=== PATIENT | female | born 1940 | race Caucasian/White ===

== ENCOUNTER 2024-05-25 15:23 | Emergency (ER) | payer OTHER, SELFPAY ==
[2024-05-25 15:25] VITALS: BP 150/105
[2024-05-25 16:05] LABS: % Basophils 1.2 % (0-2); % Eosinophils 3.2 % (0-6); % Immature Granulocytes 0.2 % (0-0.5); % Lymphocytes 31.6 % (20.5-51.1); % Monocytes 5.2 % (1.7-9.3); % Neutrophils 58.6 % (42.2-75.2); Absolute Basophils 0.1 10^3/uL (0-0.2); Absolute Eosinophils 0.3 10^3/uL (0-0.7); Absolute Lymphocytes 2.6 10^3/uL (1.2-3.4); Absolute Monocytes 0.4 10^3/uL (0.1-0.6); Absolute Neutrophils 4.8 10^3/uL (1.4-6.5); Hematocrit 39.5 % (37.0-47.0); Hemoglobin 13.5 g/dL (12.0-16.0); Mean Corp Hgb Conc. 34.2 g/dL (33.0-37.0); Mean Corpuscular Hgb 30.8 pg (27.0-31.0); Mean Corpuscular Volume 90.2 fL (81.0-99.0); Mean Platelet Volume 9.7 fL (7.4-10.4); Nucleated Red Blood Cells % 0 %; Platelet Count 257 10^3/uL (130-400); Red Blood Cell Count 4.38 10^6/uL (4.20-5.40); Red Cell Dist. Width 11.9 % (11.5-14.5); White Blood Cell Count 8.2 10^3/uL (4.8-10.8)
[2024-05-25 16:16] LABS: ALT (SGPT) 15 U/L (0-35); AST (SGOT) 26 U/L (14-36); Albumin 4.4 g/dl (3.5-5.0); Alkaline Phosphatase 88 U/L (38-126); Blood Urea Nitrogen 18 mg/dl (7-17); Calcium 9.3 mg/dl (8.4-10.2); Carbon Dioxide 28 mmol/L (22-30); Chloride 100 mmol/L (98-107); Glucose 93 mg/dl (70-99); INR 1.54; PT 18.6 Sec (11.4-14.6); Potassium 4.5 mmol/L (3.5-5.1); Sodium 139 mmol/L (135-145); Total Bilirubin 0.9 mg/dl (0.2-1.3); Total Protein 6.6 g/dl (6.3-8.2); eGFR > 60.00
[2024-05-25 16:25] VITALS: BP 133/100; BMI 22.3
[2024-05-25 16:27] VITALS: BP 133/100
[2024-05-25 16:27] LABS: Troponin I < 0.012 ng/ml
--- NOTE | 2024-05-25 16:46 | ED.GENMED ---
History of Present Illness
General
Chief Complaint: Heart Rate Problem
Source: patient and physician
Exam Limitations: none
Time Seen by Provider: 05/25/24 16:29
Nursing documentation reviewed up to this point in time: agreed with
History of Present Illness
History of Present Illness:
83-year-old female presents after EKG showed atrial fibrillation at office. She denies any symptoms at this time.
Past History
Past History
ED Past Medical History: Arrthythmia (Atrial flutter), HTN and Hypercholesterolemia
ED Past Surgical History: Other (Lipoma removed)
Social History
Tobacco: Former smoker
Alcohol: None
Personal:
Living: alone
Review of Systems
Review of Systems
Allergies reviewed?: Yes
All Other Systems: Not applicable
Constitutional: Reports no symptoms
EENT: Reports no symptoms
Respiratory: Reports no symptoms
Cardiac: Reports palpitations
ABD/GI: Reports no symptoms
: Reports no symptoms
Musculoskeletal: Reports no symptoms
Skin: Reports no symptoms
Neurological: Reports no symptoms
Endocrine: Reports no symptoms
Hematologic/Lymphatic: Reports no symptoms
Psychiatric: Reports no symptoms
Phy Exam
Physical Exam
Physical Exam:
Physical Exam
General: no apparent distress, not acutely ill
Neck: supple. no meningeal signs. normal posterior pharynx
Heart: s1/s2 regular rate and rhythm, no murmur. equal radial
pulses.
HEENT: Pupils equal round reactive to light, EOMI
Lungs: no acute respiratory distress. clear bilaterally
Abdomen: normal bowel sounds. not tender. no CVAT
Neuro: alert and oriented. no focal neurological deficits cranial nerves II through XII intact
Skin: no rash
Psychiatric: well kept. interactive and cooperative
Extremities: no edema. no calf tenderness. negative homans. good distal pulses
Course
Orders/Labs/Results
Orders:
Orders
05/25/24 15:24
EKG [Electrocardiogram (*1)] Urgent
Reason for Study: Tachycardia
EKG- Treatment ONCE
05/25/24 15:51
Complete Blood Count/With Diff Urgent
Comprehensive Metabolic Panel Urgent
Prothrombin Time Urgent
Troponin I Urgent
05/25/24 16:55
Diltiazem HCl [Cardizem] 5 mg IV NOW STA
05/25/24 16:56
IV Insert/Care/Rem.- Treatment PRN
Abnormal Lab Results
05/25/24
15:51
PT 18.6 H Sec
(11.4-14.6)
BUN 18 H mg/dl
(7-17)
05/25/24 15:51
05/25/24 15:51
Vital Signs
Initial and Last Documented VS:
Initial Vital Signs
Temp Pulse Resp BP Pulse Ox
98.9 F 127 20 150/105 98
05/25/24 15:25 05/25/24 15:25 05/25/24 15:25 05/25/24 15:25 05/25/24 15:25
Last Documented Vital Signs
Temp Pulse Resp BP Pulse Ox
98.9 F 95 19 135/96 98
05/25/24 15:25 05/25/24 18:00 05/25/24 18:00 05/25/24 18:00 05/25/24 18:00
MDM/Problems Addressed
Differential Diagnosis Includes:
Atrial flutter
MDM/Problems Addressed:
83-year-old female with rapid atrial flutter, now rate controlled without intervention. Patient has not been taking her Eliquis as directed. Will increase her Cardizem to 360 daily. DCCV not indicated at this time.
Chronic conditions affecting care: Arrhythmia
Acute Exacerbation and/or Progression of Chronic Illness: Arrhythmia
*Pulse Oximetry
Patient hypoxic: no
*EKG
Interpreted by ED Provider?: Yes
EKG Intrepretation Date: 05/25/24
EKG Intrepretation Time: 15:26
Interpretation: abnormal
Comparison EKG: changes noted
Heart Rate: 126
Rate: tachycardiac
Rhythm: atrial flutter
[place]: normal axis
Interval: normal interval
QRS Pattern: normal QRS
Ischemia: no ischemia
*Energy Crop Farmer Interpretation
Rate: normal
Interpretation: abnormal
Heart Rate: 92
Rhythm: atrial flutter
*Critical Care Note
Total Time (30-74mins, 75-104mins- exclusive of procedures): Not Applicable
Data Reviewed
Prescriptions/Medications Considered But Not Given:
DCCV considered, not indicated due to non compliance and rate control
Patient Management
Social determinants of health affecting care: Living situation
Discussion with other providers: Cargo Operations Agent (cardiology Dr. Mathews)
Escalation/DeEscalation of care consider admission/obs:
admit not indicated
ED Attending Note
-
Portions of this chart may have been created with voice recognition software.� Occasional wrong word or��sound alike� substitutions may have occurred due to the inherent limitations of voice recognition software.
Discharge Plan
Departure
Patient Disposition: Home (Routine Discharge)
Date of Disposition: 05/25/24
Time of Disposition: 18:14
Patient with high blood pressure during this ER visit?: Yes
Condition: Good
Discharge Problem:
Atrial flutter
Prescriptions:
New
diltiazem HCl [Cardizem CD] 360 mg capsule,extended release 24hr
360 mg PO DAILY Qty: 30 0RF
Rx Instructions:
stop cardizem 240 and take this medication
No Action
amoxicillin-pot clavulanate 1 TABLET tablet
1 tab PO Q12 Qty: 14 0RF
azithromycin 250 MG tablet
250 mg PO Daily Qty: 4 0RF
Promethazine/Phenyleph/Codeine [Promethazine Vc-Codeine Soln] 473 ML Syrup
5 ml PO Q8 PRN (Reason: Cough) Qty: 100 0RF
Referrals:
Kike Chen MD [Active] - Call in 1-3 days for appt
Juan A Singh, [Family Provider] -
Activity Restrictions/Additional Instructions:
Stop cardizem 240 and take cardizem 360. Take eliquis twice a day as directed. Not taking as directed increases your risk of stroke.
Interventions
Interventions:
*Risk Screen - Suicide Last Done: 05/25/24 15:25
*General Assessment Last Done: 05/25/24 16:25
*Neglect/Abuse Screening Last Done: 05/25/24 15:25
ED- Fall Risk Assessment Last Done: 05/25/24 16:25
*ED COVID-19 Vaccine History Last Done: 05/25/24 16:25
ED- Cardiac Assessment Last Done: 05/25/24 16:25
ED- Pulmonary Assessment Last Done: 05/25/24 16:25
Discharge Date and Time
Print Language: TAIWANESE
[2024-05-25 17:00] VITALS: BP 134/95
[2024-05-25 18:00] VITALS: BP 135/96
== END 2024-05-25 18:36 | disposition home or self-care (01) ==
LOC: EMR 15:23
PROVIDERS: Emergency Medicine; EMERGENCY PHYSICIAN Emergency Medicine; FAMILY PHYSICIAN Family Medicine
DX: I48.92 Unspecified atrial flutter (principal); I48.91 Unspecified atrial fibrillation; Z91.148 Patient's other noncompliance with medication regimen for other reason; I10 Essential (primary) hypertension; E78.00 Pure hypercholesterolemia, unspecified; Z87.891 Personal history of nicotine dependence
CPT/HCPCS: 99284; 80053; 84484; 85025; 85610; 93005

== ENCOUNTER 2025-01-08 13:16 | Emergency (ER) | payer OTHER, SELFPAY ==
[2025-01-08 13:19] VITALS: BP 122/66
[2025-01-08 13:45] LABS: % Basophils 0.7 % (0-2); % Eosinophils 1.8 % (0-6); % Immature Granulocytes 0.4 % (0-0.5); % Lymphocytes 11.9 % (20.5-51.1); % Monocytes 5.4 % (1.7-9.3); % Neutrophils 79.8 % (42.2-75.2); Absolute Basophils 0.1 10^3/uL (0-0.2); Absolute Eosinophils 0.2 10^3/uL (0-0.7); Absolute Monocytes 0.5 10^3/uL (0.1-0.6); Absolute Neutrophils 6.8 10^3/uL (1.4-6.5); Hematocrit 39.9 % (37.0-47.0); Hemoglobin 13.8 g/dL (12.0-16.0); Mean Corp Hgb Conc. 34.6 g/dL (33.0-37.0); Mean Corpuscular Hgb 31.4 pg (27.0-31.0); Mean Corpuscular Volume 90.9 fL (81.0-99.0); Mean Platelet Volume 9.5 fL (7.4-10.4); Nucleated Red Blood Cells % 0 %; Platelet Count 268 10^3/uL (130-400); Red Blood Cell Count 4.39 10^6/uL (4.20-5.40); Red Cell Dist. Width 11.9 % (11.5-14.5); White Blood Cell Count 8.6 10^3/uL (4.8-10.8)
[2025-01-08 14:03] LABS: ALT (SGPT) 16 U/L (0-35); AST (SGOT) 25 U/L (14-36); Albumin 4.3 g/dl (3.5-5.0); Alkaline Phosphatase 103 U/L (38-126); Blood Urea Nitrogen 9 mg/dl (7-17); Calcium 9.4 mg/dl (8.4-10.2); Carbon Dioxide 29 mmol/L (22-30); Chloride 98 mmol/L (98-107); Glucose 150 mg/dl (70-99); Potassium 4.5 mmol/L (3.5-5.1); Sodium 135 mmol/L (135-145); Total Bilirubin 0.9 mg/dl (0.2-1.3); Total Protein 6.8 g/dl (6.3-8.2); eGFR > 60.00
[2025-01-08 14:09] LABS: Troponin I < 0.012 ng/ml
[2025-01-08] MEDS: DUONEB 3 ML INH (15:53)
[2025-01-08 16:51] VITALS: BP 140/69
--- NOTE | 2025-01-08 16:58 | ED.GENMED ---
History of Present Illness
General
Chief Complaint: Cough
Time Seen by Provider: 01/08/25 15:19
History of Present Illness
History of Present Illness:
84-year-old female presents the emergency department for evaluation of cough and congestion for the past 5 days. Denies any fevers or chills. She has chest discomfort related to coughing but denies any shortness of breath. Has been using Tylenol
for the chest discomfort without relief
Past History
Past History
ED Past Medical History: Arrthythmia (Atrial flutter), HTN and Hypercholesterolemia
ED Past Surgical History: Other (Lipoma removed)
Social History
Tobacco: Former smoker
Alcohol: None
Personal:
Living: alone
Review of Systems
Review of Systems
Allergies reviewed?: Yes
All Other Systems: ROS reviewed and negative except as documented in HPI and ROS
Phy Exam
Physical Exam
Physical Exam:
GEN: Well appearing, NAD, WDWN
HEENT: Oral mucosa moist, no scleral icterus, TMs clear bilaterally with no erythema, oral mucosa pink and moist with no erythema or exudates
Cardiac: Regular rate and rhythm, no murmurs
Lung: No respiratory distress, no tachypnea, lungs clear to auscultation bilaterally
MSK: No gross deformity or injuries
Skin: Good color, no pallor or jaundice, no rashes
Neuro: AO x3, moves all extremities freely
Psych: Calm, cooperative
Course
Orders/Labs/Results
Orders:
Orders
01/08/25 13:17
CXR2 [CR Chest - 2 Views ] Urgent
Comment:
Reason For Exam: cough
01/08/25 13:23
EKG [Electrocardiogram (*1)] Urgent
Reason for Study: Shortness of Breath
EKG- Treatment ONCE
01/08/25 13:39
Complete Blood Count/With Diff Urgent
Comprehensive Metabolic Panel Urgent
Troponin I Urgent
01/08/25 15:39
Ipratropium/Albuterol Sulfate [Duoneb] 3 ml INH R NOW ONE
Abnormal Lab Results
01/08/25
13:39
MCH 31.4 H pg
(27.0-31.0)
Absolute Neuts (auto) 6.8 H 10^3/uL
(1.4-6.5)
Absolute Lymphs (auto) 1.0 L 10^3/uL
(1.2-3.4)
Neutrophils % 79.8 H %
(42.2-75.2)
Lymphocytes % 11.9 L %
(20.5-51.1)
Glucose 150 H mg/dl
(70-99)
01/08/25 13:39
01/08/25 13:39
Vital Signs
Initial and Last Documented VS:
Initial Vital Signs
Temp Pulse Resp BP Pulse Ox
98.9 F 84 18 122/66 97
01/08/25 13:19 01/08/25 13:19 01/08/25 13:19 01/08/25 13:19 01/08/25 13:19
Last Documented Vital Signs
Temp Pulse Resp BP Pulse Ox
98.9 F 80 20 140/69 100
01/08/25 13:19 01/08/25 16:51 01/08/25 16:51 01/08/25 16:51 01/08/25 16:51
MDM/Problems Addressed
MDM/Problems Addressed:
Workup was reassuring, chest x-ray negative. Patient improved with neb treatment suggesting some component of bronchitis or reactive airways disease. Will give a course of steroids and bronchodilators
*Critical Care Note
Total Time (30-74mins, 75-104mins- exclusive of procedures): Not Applicable
ED Attending Note
-
Portions of this chart may have been created with voice recognition software.� Occasional wrong word or��sound alike� substitutions may have occurred due to the inherent limitations of voice recognition software.
Discharge Plan
Departure
Patient Disposition: Home (Routine Discharge)
Date of Disposition: 01/08/25
Time of Disposition: 16:58
Patient with high blood pressure during this ER visit?: No
Discharge Problem:
Acute bronchitis
Instructions: Acute Bronchitis, Adult (DC)
Prescriptions:
New
methylprednisolone [Medrol (Ap)] 4 mg tablets,dose pack
See Rx Instructions .ROUTE .COMPLEX Qty: 21 0RF
Rx Instructions:
for 6 days
albuterol sulfate 90 mcg/actuation HFA aerosol inhaler
1 inh inhalation Q6H PRN (Reason: shortness of breath or wheezing) Qty: 6.7 0RF
No Action
amoxicillin-pot clavulanate 1 TABLET tablet
1 tab PO Q12 Qty: 14 0RF
azithromycin 250 MG tablet
250 mg PO Daily Qty: 4 0RF
Promethazine/Phenyleph/Codeine [Promethazine Vc-Codeine Soln] 473 ML Syrup
5 ml PO Q8 PRN (Reason: Cough) Qty: 100 0RF
diltiazem HCl [Cardizem CD] 360 mg capsule,extended release 24hr
360 mg PO DAILY Qty: 30 0RF
Rx Instructions:
stop cardizem 240 and take this medication
Referrals:
Juan A Sinhg, DO [Family Provider] -
Interventions
Interventions:
*Risk Screen - Suicide Last Done: 01/08/25 13:19
*Nursing Disposition Last Done: 01/08/25 17:15
ED- Pulmonary Assessment Last Done: 01/08/25 16:15
Discharge Date and Time
Discharge Date/Time: 01/08/25 17:15
Print Language: MALAY
== END 2025-01-08 17:15 | disposition home or self-care (01) ==
LOC: EMR 13:16
PROVIDERS: Emergency Medicine; EMERGENCY PHYSICIAN Emergency Medicine; FAMILY PHYSICIAN Family Medicine
DX: J20.9 Acute bronchitis, unspecified (principal); R07.89 Other chest pain; I10 Essential (primary) hypertension; E78.00 Pure hypercholesterolemia, unspecified; I48.92 Unspecified atrial flutter; Z87.891 Personal history of nicotine dependence
CPT/HCPCS: 99284; 94640; 71046; 80053; 84484; 85025; 93005

== ENCOUNTER 2025-01-24 07:25 | Emergency (ER) | payer OTHER, SELFPAY ==
[2025-01-24 07:58] VITALS: BP 146/71
[2025-01-24 09:32] VITALS: BP 154/75
[2025-01-24 09:36] VITALS: BMI 22.5
[2025-01-24 10:00] VITALS: BP 132/64
--- NOTE | 2025-01-24 11:14 | EDRN ---
Call to lab to find results-- they are unable to find labs ( apparently they were sent using [facility] as the barcode labels were lost )
I resent the labs
[2025-01-24 11:20] LABS: % Basophils 0.7 % (0-2); % Eosinophils 2.1 % (0-6); % Immature Granulocytes 0.3 % (0-0.5); % Lymphocytes 24.1 % (20.5-51.1); % Monocytes 4.4 % (1.7-9.3); % Neutrophils 68.4 % (42.2-75.2); Absolute Basophils 0.1 10^3/uL (0-0.2); Absolute Eosinophils 0.2 10^3/uL (0-0.7); Absolute Lymphocytes 1.8 10^3/uL (1.2-3.4); Absolute Monocytes 0.3 10^3/uL (0.1-0.6); Absolute Neutrophils 5.2 10^3/uL (1.4-6.5); Hematocrit 36.5 % (37.0-47.0); Hemoglobin 12.4 g/dL (12.0-16.0); Mean Corpuscular Hgb 31.1 pg (27.0-31.0); Mean Corpuscular Volume 91.5 fL (81.0-99.0); Mean Platelet Volume 9.4 fL (7.4-10.4); Nucleated Red Blood Cells % 0 %; Platelet Count 256 10^3/uL (130-400); Red Blood Cell Count 3.99 10^6/uL (4.20-5.40); White Blood Cell Count 7.6 10^3/uL (4.8-10.8)
[2025-01-24 11:34] LABS: ALT (SGPT) 15 U/L (0-35); AST (SGOT) 26 U/L (14-36); Albumin 4.1 g/dl (3.5-5.0); Alkaline Phosphatase 81 U/L (38-126); Blood Urea Nitrogen 15 mg/dl (7-17); Calcium 9.1 mg/dl (8.4-10.2); Carbon Dioxide 29 mmol/L (22-30); Chloride 103 mmol/L (98-107); Estimated Creatinine Clearance 53 ml/min; Glucose 93 mg/dl (70-99); Potassium 4.1 mmol/L (3.5-5.1); Sodium 135 mmol/L (135-145); Total Bilirubin 0.8 mg/dl (0.2-1.3); Total Protein 6.4 g/dl (6.3-8.2); eGFR > 60.00
--- NOTE | 2025-01-24 12:19 | ED.GENMED ---
History of Present Illness
General
Chief Complaint: Bowel Problem
Time Seen by Provider: 01/24/25 09:22
History of Present Illness
History of Present Illness:
84-year-old female presenting to the emergency department for ongoing constipation. Patient reports symptoms for the past several weeks. She has been using a lot of OTC medications. She is concerned for a 'bowel blockage'. Denies vomiting. She
is still passing gas. Last bowel movement was several days ago. Denies chest pain or difficulty breathing. Denies fever. Reports history of lipoma removal, otherwise denies surgical history. She notes that she has never had a colonoscopy.
Denies additional acute medical complaint
Past History
Past History
ED Past Medical History: Arrthythmia (Atrial flutter), HTN and Hypercholesterolemia
ED Past Surgical History: Other (Lipoma removed)
Social History
Tobacco: Former smoker
Alcohol: None
Personal:
Living: alone
Phy Exam
Physical Exam
Physical Exam:
General: Well-appearing, no clinical signs of dehydration, nontoxic and in no acute distress
HEENT: protecting airway
Neck: appears supple
CV: Normal heart rate, regular rhythm
Resp: No accessory muscle use, no increased work of breathing, lungs clear to auscultation bilaterally
Abd: Soft and non-distended, no tenderness to palpation
Extremities: No deformities, no swelling
Neuro: alert, no focal neurologic deficit
: deferred
Rectal: deferred
Psych: Normal affect
Skin: Intact
Course
Orders/Labs/Results
Orders:
Orders
01/24/25 08:02
Electrocardiogram (*1) Urgent
Reason for Study: Abdominal Pain
EKG- Treatment ONCE
01/24/25 10:20
CT Abd/pelvis W Iv Cont Urgent
Comment:
Reason For Exam: consipation
01/24/25 11:13
Complete Blood Count/With Diff Urgent
Comprehensive Metabolic Panel Urgent
Abnormal Lab Results
01/24/25
11:13
RBC 3.99 L 10^6/uL
(4.20-5.40)
Hct 36.5 L %
(37.0-47.0)
MCH 31.1 H pg
(27.0-31.0)
Creatinine 0.5 L mg/dL
(0.6-1.0)
01/24/25 11:13
01/24/25 11:13
Vital Signs
Initial and Last Documented VS:
Initial Vital Signs
Temp Pulse Resp BP Pulse Ox
98.1 F 82 16 146/71 98
01/24/25 07:58 01/24/25 07:58 01/24/25 07:58 01/24/25 07:58 01/24/25 07:58
Last Documented Vital Signs
Temp Pulse Resp BP Pulse Ox
98.1 F 82 16 152/78 95
01/24/25 07:58 01/24/25 07:58 01/24/25 07:58 01/24/25 12:25 01/24/25 12:27
MDM/Problems Addressed
MDM/Problems Addressed:
84-year-old female presenting for concern of constipation. Vital signs on arrival are normal.
On exam patient resting comfortably, no acute distress, nontoxic. Abdominal exam is benign, soft and nondistended, normal bowel sounds, no tenderness to palpation. Symptoms appear most consistent with uncomplicated constipation. Patient is very
concerned about a bowel blockage. Given duration of symptoms, will proceed with CT imaging and laboratory analysis.
13:30 - Labs unremarkable. CT imaging without acute intra-abdominal pathology. Feel stable for discharge, however did advise outpatient GI follow-up for potential colonoscopy, given that she has never had 1 and is having ongoing constipation.
Return precautions discussed and patient verbalized understanding
*Critical Care Note
Total Time (30-74mins, 75-104mins- exclusive of procedures): Not Applicable
ED Attending Note
-
Portions of this chart may have been created with voice recognition software.� Occasional wrong word or��sound alike� substitutions may have occurred due to the inherent limitations of voice recognition software.
Discharge Plan
Departure
Prescriptions:
No Action
amoxicillin-pot clavulanate 1 TABLET tablet
1 tab PO Q12 Qty: 14 0RF
azithromycin 250 MG tablet
250 mg PO Daily Qty: 4 0RF
Promethazine/Phenyleph/Codeine [Promethazine Vc-Codeine Soln] 473 ML Syrup
5 ml PO Q8 PRN (Reason: Cough) Qty: 100 0RF
diltiazem HCl [Cardizem CD] 360 mg capsule,extended release 24hr
360 mg PO DAILY Qty: 30 0RF
Rx Instructions:
stop cardizem 240 and take this medication
methylprednisolone [Medrol (Ap)] 4 mg tablets,dose pack
See Rx Instructions .ROUTE .COMPLEX Qty: 21 0RF
Rx Instructions:
for 6 days
albuterol sulfate 90 mcg/actuation HFA aerosol inhaler
1 inh inhalation Q6H PRN (Reason: shortness of breath or wheezing) Qty: 6.7 0RF
Referrals:
Juan A Singh, DO [Family Provider] -
Interventions
Interventions:
*Risk Screen - Suicide Last Done: 01/24/25 07:58
*Neglect/Abuse Screening Last Done: 01/24/25 07:58
*ED- Fall Risk Assessment Last Done: 01/24/25 09:38
*ED COVID-19 Vaccine History Last Done: 01/24/25 09:38
TU-Zzwouo-Xryzcgwkov Assessment Last Done: 01/24/25 09:39
Discharge Date and Time
Print Language: ETHIOPIAN
[2025-01-24 12:25] VITALS: BP 152/78
== END 2025-01-24 13:36 | disposition home or self-care (01) ==
LOC: EMR 07:25
PROVIDERS: EMERGENCY PHYSICIAN Student in an Organized Health Care Education/Training Program; FAMILY PHYSICIAN Family Medicine
DX: K59.00 Constipation, unspecified (principal); I48.92 Unspecified atrial flutter; I10 Essential (primary) hypertension; E78.00 Pure hypercholesterolemia, unspecified; Z87.891 Personal history of nicotine dependence
CPT/HCPCS: 99284; 74177; 80053; 85025; 93005; Q9967